=== PATIENT | female | born 1985 | race Caucasian/White ===

== ENCOUNTER 2016-11-06 14:16 | Inpatient (IN) ==
[2016-11-11] MEDS ORDERED: CARBOPROST 250 MCG/ML INJECTION IM PRN (18:59)
[2016-11-11] MEDS ORDERED: CALCIUM CARBONATE Chewable 500mg TABLET PO PRN (18:59)
[2016-11-11] MEDS ORDERED: ACETAMINOPHEN 500 MG TABLET PO PRN (18:59)
[2016-11-11] MEDS ORDERED: LR 1,000 ML IV PRN (18:59)
[2016-11-11] MEDS ORDERED: METHYLERGONOVINE 0.2 MG/ML INJECTION IM PRN (18:59)
[2016-11-11] MEDS ORDERED: MAG-AL + SIM ORAL LIQUID 30ml PO PRN (18:59)
[2016-11-11] MEDS ORDERED: LIDOCAINE 1% (10mg/ml) 2mL INJ PF SDV ID PRN (18:59)
[2016-11-11 19:08] VITALS: BMI 27.5
[2016-11-11] MEDS ORDERED: NALBUPHINE 10 MG/ML INJECTION IM PRN (19:24)
[2016-11-11] MEDS ORDERED: NALBUPHINE 10 MG/ML INJECTION IVP ONE (19:28)
[2016-11-12] MEDS ORDERED: NALBUPHINE 10 MG/ML INJECTION IVP PRN (00:30)
[2016-11-12] MEDS ORDERED: MAG-AL + SIM ORAL LIQUID 30ml PO PRN (01:16)
[2016-11-12] MEDS ORDERED: OXYTOCIN DRIP 30 UNIT/500 ML ML IV SCH (01:16)
[2016-11-12] MEDS ORDERED: DiphenhydrAMINE 25 MG CAPSULE PO PRN (01:16)
[2016-11-12] MEDS ORDERED: CALCIUM CARBONATE Chewable 500mg TABLET PO PRN (01:16)
[2016-11-12] MEDS ORDERED: ACETAMINOPHEN 500 MG TABLET PO PRN (01:16)
[2016-11-12] MEDS ORDERED: SALINE FLUSH 10ml SYRINGE IVF PRN (01:16)
[2016-11-12] MEDS ORDERED: HYDROCORTISONE 2.5% CREAM 30gm RECTALLY PRN (01:16)
[2016-11-12] MEDS: IBUPROFEN 800 MG TABLET PO SCH ×3 (01:18→19:15)
[2016-11-12] MEDS ORDERED: NALBUPHINE 10 MG/ML INJECTION IVP ONE (07:15)
[2016-11-12] MEDS: HYDROCODONE/APAP 5mg/325mg TABLET PO PRN ×3 (08:48→18:48)
--- NOTE | 2016-11-12 08:48 | Labor and Delivery Note ---
DATE OF DELIVERY She was admitted on 11/11/2016 and delivered today, 11/12/2016. DELIVERY NOTE Ms. Pinto progressed well in first stage of labor. She began to push with excellent effort at the complete and +2 presentation. She pushed for quite a while, probably a couple of hours. Baby was for most of this time. I recommended an episiotomy and infiltrated the midline of the perineum was 1% lidocaine without epi and cut a second-degree episiotomy. She continued to push very well, however, even this was slow going. She did deliver the head in the OA presentation. There was a very tight nuchal cord x 1. I doubly clamped this, cut it, and reduced it. With a further push, baby was then delivered in total. Baby was bulb suctioned on the perineum and then bulb suctioned again. Baby was initially placed on mother's abdomen and then given to the nurses for care. This is a liveborn male with Apgars of 8/8/8. He weighed 8 pounds 0.8 ounces. After a few moments the placenta delivered spontaneously, intact. It had a normal configuration and a normal-appearing three-vessel cord. The second-degree episiotomy was then further numbed with more lidocaine infiltration, then repaired in the usual fashion with a 2-0 Vicryl. Total blood loss was approximately 400 ml. Vaginal sweep was performed. There were no other lacerations. At the time of this dictation mother and baby are doing well. [facility], [place]
[2016-11-12] MEDS ORDERED: DOCUSATE CALCIUM 240 MG CAPSULE PO SCH (09:00)
[2016-11-12 13:26] VITALS: O2SAT 96
[2016-11-12] MEDS ORDERED: MEASLES-MUMPS-RUBELLA VACCINE 0.5ml INJECTION SUB-Q ONE (14:32)
--- NOTE | 2016-11-12 17:27 | OB/GYN Progress Note ---
OB-PP Progress Note - General PPD0 - Subjective Date: 11/12/16 Lochia: Minimal Pain: contolled Voiding: voiding Nausea or Vomiting Present: No - Objective Vital Signs: Last Vital Signs Temp 98.2 F 11/12/16 13:00 Pulse 67 11/12/16 13:00 Resp 16 11/12/16 13:00 BP 113/71 11/12/16 13:00 Pulse Ox 96 11/12/16 13:00 Urine Output: good General: alert and oriented Abdomen: fundus firm, non-tender Extremities: non-tender Edema: none Laboratory: Laboratory Results - last 24 hr 11/11/16 11/11/16 11/11/16 19:11 19:14 19:14 WBC 12.0 H RBC 4.49 Hgb 13.6 13.5 Hct 39.8 39.6 MCV 88.6 MCH 30.3 MCHC 34.2 RDW Std Deviation 41.0 Plt Count 179 MPV 11.7 Blood Type A Positive Antibody Screen Negative - Assessment Assessment: SP, - Plan Plan: routine care
[2016-11-13] MEDS: IBUPROFEN 800 MG TABLET PO SCH (03:09)
[2016-11-13] MEDS: HYDROCODONE/APAP 5mg/325mg TABLET PO PRN (03:10)
--- NOTE | 2016-11-13 08:12 | Discharge Instructions ---
Discharge Plan - Med Rec/Dispo Prescriptions: New Ibuprofen [Motrin] 800 mg PO Q8H #50 tablet Hydrocodone/APAP 5/325 [[place] 5/325] 1 - 2 tab PO Q4H PRN #20 tablet PRN Reason: Pain Continue Flonase Vitamins 1 tab PO No Action Zyrtec Dha [id number] Discharge Instructions/Outpatient Orders: Final Provider Discharge Instructions Location: Determined By Patient - Disposition 01 Discharged Home, Self-Care
--- NOTE | 2016-11-13 08:17 | OB/GYN Progress Note ---
OB-PP Progress Note - General PPD0, PPD2 - Subjective Date: 11/13/16 Lochia: Minimal Pain: contolled (Using both [place] and Ibuprofen.) Voiding: voiding Nausea or Vomiting Present: No - Objective Vital Signs: Last Vital Signs Temp 98.4 F 11/12/16 22:41 Pulse 76 11/12/16 22:41 Resp 14 11/12/16 22:41 BP 119/65 11/12/16 22:41 Pulse Ox 96 11/12/16 13:00 Urine Output: good General: alert and oriented Abdomen: fundus firm Extremities: non-tender Edema: none - Assessment Assessment: - Plan Plan: discharge home
[2016-11-13 08:47] VITALS: BP 114/68; PULSE 65; RESP 20; TEMP 97.7
== END 2016-11-13 10:58 | disposition home or self-care (01) | DRG 775 ==
LOC: MC 11-11 18:50
PROVIDERS: ADMIT Obstetrics & Gynecology; ATTEND Obstetrics & Gynecology

== ENCOUNTER 2016-11-20 15:43 | Inpatient (IN) ==
[2016-11-20] MEDS ORDERED: SALINE FLUSH 10ml SYRINGE IVF PRN (15:52)
[2016-11-20] MEDS ORDERED: HYDROCODONE/APAP 5mg/325mg TABLET PO PRN ×2 (15:55→16:17)
[2016-11-20] MEDS ORDERED: NS 1,000 ML IV ONE (15:56)
[2016-11-20 16:05] VITALS: BMI 25.1
[2016-11-20] MEDS ORDERED: IBUPROFEN 800 MG TABLET PO PRN (16:17)
[2016-11-20] MEDS: CEFTRIAXONE 2 GM in NS 100 ML IV SCH (16:58)
[2016-11-20] MEDS: IBUPROFEN 800 MG TABLET PO PRN (17:56)
[2016-11-20] MEDS: NS 1,000 ML IV SCH (18:15)
[2016-11-21] MEDS: NS 1,000 ML IV SCH ×3 (01:00→14:46)
[2016-11-21] MEDS: IBUPROFEN 800 MG TABLET PO PRN ×3 (01:17→17:59)
--- NOTE | 2016-11-21 08:17 | OB/GYN Progress Note ---
[employer] Progress Note - Subjective Today's Date: 11/21/16 Pt reports feeling slightly better. - Objective Vital signs: Temperature 98.7 F 11/21/16 05:10 Pulse Rate 104 H 11/21/16 05:10 Respiratory Rate 18 11/21/16 05:10 Blood Pressure 137/69 11/21/16 05:10 Pulse Oximetry 96 11/21/16 05:10 Oxygen Delivery Method Room Air Urine Output: good General: alert and oriented Extremities: non-tender Laboratory Result: 11/21/16 05:30 11/21/16 05:30 Additional Findings: left breast UIQ red, firm. No discrete mass. - Assessment and Plan (1) Mastitis Assessment and Plan: Continue iv antibiotics until afebrile x 24 hours. Q&A
[2016-11-21] MEDS: DIPHENOXYLATE /ATROPINE TABLET PO PRN ×2 (12:22→16:44)
[2016-11-21 12:29] VITALS: O2SAT 97
[2016-11-21] MEDS: CEFTRIAXONE 2 GM in NS 100 ML IV SCH (16:44)
--- NOTE | 2016-11-21 17:57 | OB/GYN History & Physical ---
- History of Present Illness Date of Admission: 11/21/16 14:06 : 1 [facility] Patient Stated Medical History Hx Kidney Stones Yes: history of kidney stone years ago Herpes No Human Immunodeficiency Virus ( No HIV) Infertility Yes: has been on clomid Maternal Gestational Diabetes No Now Yes - Social History Smoking status: Never smoker Medications Home Medications Medication Instructions Recorded Confirmed Type Vitamins 1 tab PO 10/10/16 History Allergies Allergy/AdvReac Type Severity Reaction Status Date / Time No Known Drug Allergies Allergy Unknown Verified 11/20/16 16:05 [employer] Exam Vital signs: Temperature 98.6 F 11/21/16 12:28 Pulse Rate 88 11/21/16 12:28 Respiratory Rate 18 11/21/16 12:28 Blood Pressure 130/73 11/21/16 12:28 Pulse Oximetry 97 11/21/16 12:28 Oxygen Delivery Method Room Air [employer] Results - Labs CBC & Chem 7: 11/21/16 05:30 11/21/16 05:30 Assessment and Plan (1) Mastitis Current visit: Yes Status: Acute
[2016-11-21] MEDS: AMOX/CLAV 500 MG/125 MG TABLET PO SCH (22:32)
[2016-11-22] MEDS: IBUPROFEN 800 MG TABLET PO PRN ×2 (01:43→09:39)
[2016-11-22] MEDS: AMOX/CLAV 500 MG/125 MG TABLET PO SCH (07:51)
--- NOTE | 2016-11-22 08:12 | OB/GYN Progress Note ---
REPATCHER Progress Note - Subjective Today's Date: 11/22/16 She's feeling much better. The breast redness and tenderness have greatly improved. Baby is nursing well on both sides. - Objective Vital signs: Temperature 98.0 F 11/22/16 01:43 Pulse Rate 78 11/22/16 01:43 Respiratory Rate 14 11/22/16 01:43 Blood Pressure 122/76 11/22/16 01:43 Pulse Oximetry 97 11/21/16 21:15 Oxygen Delivery Method Room Air General: alert and oriented Extremities: non-tender Laboratory Result: 11/21/16 05:30 11/21/16 05:30 Additional Findings: Left breast with mild erythema and mild firmness of the inner upper quadrant. - Assessment and Plan (1) Mastitis Assessment and Plan: Dr. Olivarez' note from yesterday said she wanted the patient to be on IV antibiotics until she was afebrile for 24 hours. However, the patient said that last night Dr. Olivarez switched her to Augmentin and that she could go home this morning despite the fever. The patient strongly desires DC. I recommended that she stay for one further dose of IV Rocephin this afternoon, but she would like to go home now with PO Augmentin. She will follow up next week with Dr. Olivarez.
--- NOTE | 2016-11-22 08:16 | Discharge Instructions ---
Discharge Plan - Med Rec/Dispo Prescriptions: New Amox/Clav [Augmentin] 500 mg PO Q8HR #30 tablet Continue Ibuprofen [Motrin] 800 mg PO Q8H #50 tablet Vitamins 1 tab PO Discontinued Hydrocodone/APAP 5/325 [[place] 5/325] 1 - 2 tab PO Q4H PRN #20 tablet PRN Reason: Pain Discharge Instructions/Outpatient Orders: Final Provider Discharge Instructions Location: Determined By Patient - Disposition 01 Discharged Home, Self-Care
[2016-11-22] MEDS: DIPHENOXYLATE /ATROPINE TABLET PO PRN (09:39)
[2016-11-22 10:19] VITALS: BP 108/71; PULSE 76; RESP 16; TEMP 98.2
== END 2016-11-22 09:50 | disposition home or self-care (01) | DRG 776 ==
LOC: INTOOBSV 15:43 → MC 15:43
PROVIDERS: ADMIT Obstetrics & Gynecology; ATTEND Obstetrics & Gynecology